=== PATIENT | female | born 1970 | race Caucasian/White ===

== ENCOUNTER → 2018-03-08 | Outpatient (CLI) | payer OTHER ==
[~2018-03-08] MED LIST: CIPRO500 MG PO; FLAGYL500 MG PO; NORCO 5-325 TA1 EACH PO; ZOFRAN ODT4 MG PO
== END ==
LOC: M.CT 09:23
DX: Z13.6 Encounter for screening for cardiovascular disorders (principal)

== ENCOUNTER → 2018-03-08 | Outpatient (CLI) | payer OTHER | LOC: M.CT 03-03 11:15 → M.RAD 09:31 | DX: Z12.31 Encounter for screening mammogram for malignant neoplasm of breast (principal) ==

== ENCOUNTER 2019-05-23 10:48 | Emergency (ER) | payer OTHER ==
[~2019-05-23] VITALS: Ht 175.3 cm; Wt 77.1 kg
[2019-05-23] MEDS ORDERED: IBUPROFEN 600600 M1 PO (11:29)
[2019-05-23] MEDS ORDERED: NORCO 5-325 TA1 EAC1 PO (11:29)
[2019-05-23 12:09] VITALS: BP 117/68
== END 2019-05-23 12:11 | disposition home or self-care (01) ==
LOC: M.ERS 10:48
DX: S93.691A Other sprain of right foot, initial encounter (principal); W18.39XA Other fall on same level, initial encounter; Y93.89 Activity, other specified; Y92.89 Other specified places as the place of occurrence of the external cause; Y99.8 Other external cause status

== ENCOUNTER 2019-07-12 13:20 | Emergency (ER) | payer OTHER ==
[~2019-07-12] VITALS: Ht 175.3 cm; Wt 72.6 kg
[~2019-07-12 13:20] MED LIST changes: +IBUPROFEN 600600 M1 PO; +NORCO 5-325 TA1 EAC1 PO
[2019-07-12] MEDS ORDERED: IMITREX 25 MG T25 M1 PO (14:14)
[2019-07-12 14:49] VITALS: BP 127/82
== END 2019-07-12 14:50 | disposition home or self-care (01) ==
LOC: M.ERS 13:20
DX: G43.909 Migraine, unspecified, not intractable, without status migrainosus (principal); R11.2 Nausea with vomiting, unspecified; Z90.89 Acquired absence of other organs

== ENCOUNTER 2021-06-12 06:19 | Emergency (ER) | payer OTHER ==
[~2021-06-12] VITALS: Ht 175.3 cm; Wt 70.3 kg
[~2021-06-12 06:19] MED LIST changes: +IMITREX 25 MG T25 M1 PO
[2021-06-12 07:28] VITALS: BP 126/61
== END 2021-06-12 07:28 | disposition home or self-care (01) ==
LOC: M.ERS 06:19
DX: R51.9 Headache, unspecified (principal); Z20.822 Contact with and (suspected) exposure to COVID-19; G43.909 Migraine, unspecified, not intractable, without status migrainosus; Z90.89 Acquired absence of other organs

== ENCOUNTER → 2021-09-10 | Outpatient (CLI) | payer OTHER | LOC: M.RAD 09:08 | PROVIDERS: ATTEND Family Medicine | DX: Z12.31 Encounter for screening mammogram for malignant neoplasm of breast (principal); N64.89 Other specified disorders of breast ==